=== PATIENT | female | born 2000 | race Caucasian/White ===

== ENCOUNTER 2024-10-11 05:49 | Emergency (ER) | payer MEDICAID ==
[~2024-10-11] VITALS: Ht 142.2 cm; Wt 47.0 kg
[2024-10-11 06:09] VITALS: O2SAT 100
[2024-10-11] MEDS: ACETAMINOPHEN 325MG TABLET PO ONE (08:09)
[2024-10-11 13:22] VITALS: BP 137/88; PULSE 79; RESP 16; TEMP 37.2; O2SAT 99
== END 2024-10-11 13:24 | disposition home or self-care (01) ==
LOC: ER 05:49
DX: S00.03XA Contusion of scalp, initial encounter (principal); J45.909 Unspecified asthma, uncomplicated; Z88.0 Allergy status to penicillin; X58.XXXA Exposure to other specified factors, initial encounter; Y93.89 Activity, other specified; Y92.89 Other specified places as the place of occurrence of the external cause; Y99.8 Other external cause status
CPT/HCPCS: 99284